=== PATIENT | male | born 1965 | race Caucasian/White ===

== ENCOUNTER 2023-11-28 01:11 | Emergency (ER) | payer BC, MEDICAID ==
[~2023-11-28] VITALS: Ht 170.2 cm; Wt 113.6 kg
[~2023-11-28 01:11] MED LIST: AZIT250T PO
[2023-11-28 01:16] VITALS: TEMP 97.8
[2023-11-28] MEDS: ketorolac tromethamine 15mg/ml inj. IM ONE (07:57)
[2023-11-28] MEDS: cyclobenzaprine 10mg tablet PO ONE (07:57)
[2023-11-28 08:00] VITALS: BP 122/74; PULSE 93; RESP 17; O2SAT 98
== END 2023-11-28 09:33 | disposition home or self-care (01) ==
LOC: ER 01:12
DX: S39.012A Strain of muscle, fascia and tendon of lower back, initial encounter (principal); Z79.2 Long term (current) use of antibiotics; X58.XXXA Exposure to other specified factors, initial encounter; Y93.89 Activity, other specified; Y92.89 Other specified places as the place of occurrence of the external cause; Y99.8 Other external cause status
CPT/HCPCS: 96372; 99283; J1885